=== PATIENT | male | born 1930 | race Caucasian/White ===

== ENCOUNTER 2016-04-24 09:42 | Day surgery (SDC) | payer MEDICARE, OTHER ==
--- NOTE | 2016-04-14 07:53 | HP ---
PREOPERATIVE HISTORY AND PHYSICAL EXAM: DATE OF SURGERY/ADMISSION: 04/24/16 - [facility] AGE: 85. PROCEDURE: Left wrist carpal tunnel release, left long finger trigger finger release. CHIEF COMPLAINT: Numbness and tingling in the left hand, left long finger triggering. HISTORY OF PRESENT ILLNESS: This is an 85-year-old male who complains of numbness and tingling in his left hand and clicking and locking of his long finger on the left hand. He has had symptoms for well over a year. It had gotten gradually worse. He has failed conservative treatment including physical therapy and bracing. He has also tried heat, rest, and cold, but no treatments thus far have definitively cured his symptoms. He has had a nerve conduction study test that showed carpal tunnel syndrome on the left. PAST MEDICAL HISTORY: Unremarkable. PAST SURGICAL HISTORY: Sinus surgery. CURRENT MEDICATIONS: [id number] Daily for Life supplement. ALLERGIES: AMPICILLIN and PENICILLIN caused rash and hives. FAMILY HISTORY: Noncontributory. SOCIAL HISTORY: The patient is retired. He denies tobacco use and recreational drug use. He does admit to alcohol use on occasion, typically has a glass of wine with dinner. REVIEW OF SYSTEMS: General: Negative for fevers, chills, or night sweats. No known anesthesia problems. HEENT: Negative for headache, lightheadedness, or syncopal episodes. Integumentary: Negative for abrasions, lesions, or open wounds. Cardiothoracic: Negative for chest pain, palpitations, or edema. Negative for hypertension. Pulmonary: Negative for shortness of breath with exertion, chronic cough, or COPD. GI: Negative for nausea, vomiting, diarrhea , constipation, or GERD. : Negative for nocturia, urinary frequency, urgency , history of UTIs, or kidney problems. Musculoskeletal: Positive for current complaint. Negative for chronic or intermittent back pain or history of fractures. Neurological: Negative for paresthesias, numbness, history of seizure, stroke, or epilepsy. Endocrine: Negative for diabetes or thyroid issues. Hematologic: Negative for easy bruising, anemia, excessive bleeding, or history of DVT. Infectious Disease: Negative for history of MRSA, hepatitis C, or HIV. PHYSICAL EXAMINATION GENERAL: Well-developed, well-nourished 85-year-old male in no acute distress. VITAL SIGNS: Height 5 feet 7-1/2 inches, weight 145 pounds, pulse rate 62, blood pressure 116/56. HEENT: Normocephalic, atraumatic. Pupils are equal, round, reactive to light and accommodation. Extraocular movements are intact. NECK: Supple. No palpable lymph nodes. Throat is clear. PULMONARY: Lungs are clear to auscultation bilaterally. No wheezes, rales, or rhonchi. CARDIOTHORACIC: Regular rate and rhythm. S1, S2. No murmurs, rubs, or gallops. No edema. ABDOMEN: Positive bowel sounds. Soft, nontender. NEUROLOGICAL: Alert and oriented x3. Cranial nerves II through XII are intact. Sensation is intact to light touch. MUSCULOSKELETAL: On exam of his left hand, he has catching and locking in the long finger and tenderness to palpation at the A1 eloisa of the long finger. He has a positive Tinel's sign at the median nerve of the wrist. Mild amount of noticeable thenar wasting, weakness with thumb abduction. Negative Phalen's test. Intact sensation to light touch. IMAGING STUDIES: Nerve conduction study, EMG shows evidence of carpal tunnel syndrome on the left. IMPRESSION: Left carpal tunnel syndrome and left long finger trigger finger. PLAN: The patient is scheduled to undergo a left wrist carpal tunnel release, left long finger trigger finger release with Dr. Rivera on 04/24/16. He will return to the office 10 to 14 days postop for followup and suture removal. A prescription for Ultracet was e-scribed to the patient's pharmacy for postoperative pain management. CHOLO PHELPS [id number]/[facility] #: [id number] [place]
[2016-04-24] MEDS ORDERED: Lidocaine 1% INJ* 10 MG/ML 30 ML SDV ONE (10:27)
[2016-04-24 11:21] VITALS: BP 137/72
--- NOTE | 2016-04-24 20:51 | OP ---
DATE OF OPERATION: 04/24/16 [facility] DATE OF : 30 SURGEON: Yamel Rivera MD PLUMBING DESIGNER: CHOLO Barger ANESTHESIA: Local. PRE-OP DIAGNOSES: Left long finger trigger finger and left carpal tunnel syndrome. POST-OP DIAGNOSES: Left long finger trigger finger and left carpal tunnel syndrome. OPERATIVE PROCEDURE: Left carpal tunnel release and long finger trigger release. INDICATIONS: Mr. Mccoy is an 85-year-old man who has persistent numbness and tingling in the median nerve distribution of his left hand as well as locking and triggering of his long finger. He presents for long finger trigger release and carpal tunnel release on the left. ESTIMATED BLOOD LOSS: Zero. TOURNIQUET TIME: About 10 minutes. DESCRIPTION OF PROCEDURE: The patient was brought to the operating room, was given a local anesthetic with total of 20 cc of 1% plain lidocaine in the palm of his left hand. The skin of his left hand and forearm was prepped and draped in the usual sterile fashion. The hand and forearm were exsanguinated and the tourniquet elevated to 250 mmHg. A trans-verse incision was made centered over the A1 eloisa of the left long finger, dissected bluntly through the subcutaneous tissue, and incised the A1 eloisa longitudinally completely releasing the tendons, which were in good condition. The wound was irrigated and the skin edges were reapproximated with 4-0 nylon suture. Next, the longitudinal incision was made in the palm of the hand in line with the ring finger. We dissected sharply through the subcutaneous tissue down to the transverse carpal ligament. The ligament was divided sharply with the knife and then more proximally with the scissors. The nerve was dissected free from the surrounding tissue and there was an area of moderate compression at the mid portion of the ligament. The wound was irrigated and the skin edges were reapproximated with 4-0 nylon suture. The wounds were dressed with Xeroform, 4x4, Webril, and an Juice wrap. The patient tolerated the procedure well and was brought to the recovery room in good condition. [id number]/[facility] #: [id number] MTDD
== END 2016-04-24 11:16 | disposition home or self-care (01) ==
LOC: OREAST 09:42
PROVIDERS: ATTEND Orthopaedic Surgery
DX: G56.02 Carpal tunnel syndrome, left upper limb (principal); M65.332 Trigger finger, left middle finger